=== PATIENT | male | born 1965 | race Caucasian/White ===

== ENCOUNTER 2020-10-10 10:49 | Emergency (ER) | payer BC, SELFPAY ==
--- NOTE | ~2020-10-10 | CT_ITS ---
EXAMINATION: CT abdomen wo con DATE: 10/10/2020 12:48 INDICATION: Left upper quadrant abdominal pain. TECHNIQUE: Computed tomography (CT) of the abdomen was performed without intravenous contrast. Automa dickson exposure control and iterative reconstruction technique were employed. The dose-length product wa s 470.00 mGy-cm. COMPARISON: 10/19/2007 FINDINGS: Mild bibasilar atelectasis, left greater than right. Heart size is normal. No pericardial or pleural effusion. Small amount of atherosclerotic coronary artery calcification. Liver, gallbladder, spleen, pancreas, bilateral adrenal glands and kidneys are normal. Normal appendix. No abnormal bowel wall th ickening or obstruction. There is mild inflammatory stranding surrounding a small ovoid region of fat along the proximal descending colon consistent with epiploic appendagitis. No pathologically enlarge d abdominal lymphadenopathy. Tiny fat-containing umbilical hernia. Minimal thoracolumbar spondylosis. IMPRESSION: 1. Epiploic appendagitis along the proximal descending colon. Reviewed, dictated and finalized at location B.
[2020-10-10 10:57] VITALS: BP 145/94; PULSE 83; RESP 20; TEMP 36.4; O2SAT 100
--- NOTE | 2020-10-10 11:06 | PC.NURSE ---
Pt states that left flank pain is only with movement. Pt states i can lay on the couch and have no pain. Pt states when I move is when it hurts.
--- NOTE | 2020-10-10 11:35 | ECG_ITS ---
Measurements Intervals [place] Rate: 75 P: 28 MA: 139 QRS: 7 QRSD: 94 T: 30 QT: 362 QTc: 404 Interpretive Statements SINUS RHYTHM NORMAL ECG Electronically Signed On 10-10-2020 11:57:28 CDT by Phil Ware D.O.
[2020-10-10] MEDS: SODIUM CHLORIDE 0.9% IV 1,000 ML 999 ML IV CONT (12:29)
[2020-10-10 12:39] LABS: Basophils Absolute Auto 0.1 K/mm3 (0.0-0.1); Eosinophils Absolute Auto 0.1 K/mm3 (0-0.3); Eosinophils Percent Auto 1.7 % (0-4.4); Hematocrit 43.3 % (42.0-52.0); Hemoglobin 14.3 g/dL (14.0-18.0); Immature Granulocyte Absolute 0.02 K/mm3 (0.00-0.031); Immature Granulocyte Percent A 0.4 % (0-0.5); Lymphocytes Absolute Auto 1.82 K/mm3 (0.9-3.2); Lymphocytes Percent Auto 34.7 % (18.3-44.2); Mean Corpuscular Hemoglobin 29.6 pg (26-34); Mean Corpuscular Volume 89.6 fl (80-100); Mean Platelet Volume 9.2 fl (7.4-10.4); Monocytes Absolute Auto 0.4 K/mm3 (0.1-0.6); Monocytes Percent Auto 8.2 % (2.6-8.5); Neutrophils Absolute Auto 2.8 K/mm3 (1.3-6.7); Platelet Count Result 223 k/mm3 (150-375); Red Blood Count 4.83 M/mm3 (4.6-6.20); Red Cell Distribution Width 12.9 % (11.5-14.5); White Blood Count 5.2 K/mm3 (4.5-10.0)
--- NOTE | 2020-10-10 12:39 | ED.ABDPAIN ---
HPI - Abdominal Pain General Chief Complaint: Back Pain/Injury Stated Complaint: abd pain Time Seen by Provider: 10/10/20 11:17 Source: patient Mode of arrival: ambulatory Limitations: no limitations History of Present Illness HPI narrative: Patient is a 55-year-old male who presents complaining of left upper quadrant and back pain x2 weeks. He reports increased pain over the past week, intermittent nausea. Denies vomiting, diarrhea or constipation. Denies injury. He reports no significant medical history. Reports increased pain with movement and reports positional at times. He denies taking [id number] medications prior to arrival. Patient reports attempting appointment with PCP but PCP unavailable until next week. MD elicited complaint: abdominal pain Pertinent past history: none Related Data Allergies Allergy/AdvReac Type Severity Reaction Status Date / Time Iodinated Contrast Media Allergy Intermediate Verified 05/15/20 12:54 Iodine and Iodide Containing Allergy Unknown Verified 05/15/20 12:54 Produc Contrast Media Allergy Intermediate Rash Uncoded 05/15/20 12:54 Review of Systems Review of Systems: Narrative: CONSTITUTIONAL: Denies fever, chills, or sweats. EYES: Denies visual changes, redness, or discharge. ENT: Denies rhinorrhea, congestion, sore throat, or otalgia. CARDIOVASCULAR: Denies chest pain, palpitations, or edema. RESPIRATORY: Denies cough or dyspnea. GASTROINTESTINAL: Reports abdominal pain with intermittent nausea, denies vomiting, constipation or diarrhea. GENITOURINARY: Denies dysuria or hematuria. SKIN: Denies rash or itching. MUSCULOSKELETAL: Denies back pain, joint pain, or myalgia. NEUROLOGIC: Denies headache, numbness, dizziness, or weakness. PSYCHIATRIC: Denies anxiety or depression. FOR[facility]LY [facility], [facility] Family History Family History (Updated 10/10/20 @ 12:44 by KENRICK Murray) Other No significant family history Social History Social History (Updated 10/10/20 @ 12:45 by KENRICK Murray) Smoking status: Former smoker Second hand tobacco smoke exposure: No Alcohol intake: current Substance use: never Living arrangements: with family Occupation/Education: occupation Gender identity (if verbalized by the patient): Male Comments At the time of signature, I have reviewed and agree with nursing past medical, surgical, social, and family history unless otherwise noted. Please see nursing chart for further information. There is no relevant family history pertinent to the presenting complaint. Exam Narrative: Exam Narrative: GENERAL: Well-appearing, well-nourished, and in no acute distress. HEAD: Normocephalic, atraumatic. EYES: EOMI. No redness or drainage. Conjunctiva are normal. ENT: Mucous membranes pink and moist. NECK: AROM. Supple. No lymphadenopathy. CHEST: No respiratory distress. Clear to auscultation. HEART: Regular rate and rhythm. No murmur appreciated. Normal peripheral pulses. GI: Soft, nontender without rebound, or guarding. No distention. Bowel sounds normal in all quadrants. MUSCULOSKELETAL: No bony tenderness. EXTREMITIES: Normal range of motion. No edema. SKIN: Warm, dry, no rash. NEURO: No focal deficits. Alert and oriented x3. Gait steady. PSYCH: Normal affect. No signs of depression or anxiety. Course Vital Signs Vital signs: Vital Signs Temperature 36.4 C 10/10/20 10:57 Pulse Rate 83 10/10/20 10:57 Respiratory Rate 20 10/10/20 10:57 Blood Pressure 145/94 H 10/10/20 10:57 Pulse Oximetry 100 10/10/20 10:57 Temperature 36.4 C 10/10/20 10:57 Pulse Rate 83 10/10/20 10:57 Respiratory Rate 20 10/10/20 10:57 Blood Pressure 145/94 H 10/10/20 10:57 Pulse Oximetry 100 10/10/20 10:57 Reviewed. Patient has been instructed to follow-up with his PCP regarding his blood pressure. MDM - Abdominal Pain MDM Narrative Medical decision making narrative: Patient's labs are unremarkable. Patient's CT shows epiplo
[2020-10-10 12:41] LABS: Add Urine Microscopic? NO; Appearance Urine Clear (Clear); Bilirubin Urine Negative (Negative); Blood Urine Negative (Negative); Color Urine Yellow (Yellow); Glucose Urine UA Negative (Negative); Ketones Urine Negative (Negative); Leukocyte Esterase Ur Negative LEU/UL (Negative); Nitrate Urine Negative (Negative); Protein Urine Negative (Negative); Specific Grav Ur 1.014 (1.001-1.035); Urobilinogen Urine Negative mg/dL (<2.0)
[2020-10-10 12:58] LABS: Alanine Aminotransferase 20 U/L (4-50); Albumin Level 4.4 g/dL (3.5-5.1); Alkaline Phosphatase 57 U/L (38-126); Anion Gap 5 mmol/L (8-16); Aspartate Amino Transferase 25 U/L (17-59); Bilirubin Indirect 0.5 mg/dL (0-1.1); Bilirubin,Total 0.5 mg/dL (0.2-1.3); Blood Urea Nitrogen 14 mg/dL (9-20); Calcium 9.6 mg/dL (8.4-10.2); Carbon Dioxide 32 mmol/L (22-30); Chloride 103 mmol/L (98-107); Estimated CRCL calculation 68 ml/min; Estimated Glomerular Filt Rate > 60; Glucose 99 mg/dL (75-110); Lipase 139 U/L (23-300); Potassium 4.4 mmol/L (3.4-5.0); Sodium 140 mmol/L (137-145)
[2020-10-10 13:10] LABS: Troponin I < 0.012 ng/mL (0.000-0.034)
== END 2020-10-10 13:33 | disposition home or self-care (01) ==
PROVIDERS: Emergency Provider Nurse Practitioner; PCP Physician Assistant
DX: K63.89 Other specified diseases of intestine (principal); Z87.891 Personal history of nicotine dependence; R03.0 Elevated blood-pressure reading, without diagnosis of hypertension
CPT/HCPCS: 36415; 74150; 80053; 81003; 82248; 83690; 84484; 85025; 93005; 96360; 99284; J7030

== ENCOUNTER 2021-03-25 07:05 | Outpatient (CLI) | payer BC, SELFPAY ==
[2021-03-25 07:42] LABS: Hematocrit 39.6 % (42.0-52.0); Hemoglobin 13.2 g/dL (14.0-18.0); Mean Corpuscular HGB Conc 33.3 g/dl (32-36); Mean Corpuscular Hemoglobin 29.5 pg (26-34); Mean Corpuscular Volume 88.4 fl (80-100); Mean Platelet Volume 8.9 fl (7.4-10.4); Platelet Count Result 222 k/mm3 (150-375); Red Blood Count 4.48 M/mm3 (4.6-6.20); Red Cell Distribution Width 12.8 % (11.5-14.5); White Blood Count 4.9 K/mm3 (4.5-10.0)
[2021-03-25 12:28] LABS: LDL Cholesterol Direct 124 mg/dL
[2021-03-25 12:45] LABS: Alanine Aminotransferase 20 U/L (4-50); Albumin Level 4.4 g/dL (3.5-5.1); Alkaline Phosphatase 52 U/L (38-126); Anion Gap 8 mmol/L (8-16); Aspartate Amino Transferase 28 U/L (17-59); Bilirubin,Total 0.5 mg/dL (0.2-1.3); Blood Urea Nitrogen 16 mg/dL (9-20); Calcium 9.7 mg/dL (8.4-10.2); Carbon Dioxide 28 mmol/L (22-30); Chloride 104 mmol/L (98-107); Cholesterol 203 mg/dL (0-200); Estimated Glomerular Filt Rate > 60; Glucose 101 mg/dL (65-110); HDL Direct 31 mg/dL; Lipase 180 U/L (23-300); Potassium 4.2 mmol/L (3.4-5.0); Sodium 140 mmol/L (137-145); Triglycerides 72 mg/dL (<150)
[2021-03-25 12:47] LABS: Prostate Specific Antigen 0.5 ng/mL (< OR = 4.0)
[2021-03-25 13:35] LABS: Folic Acid 11.5 ng/mL (2.76->20)
== END 2021-03-25 07:06 | disposition home or self-care (01) ==
PROVIDERS: PCP Physician Assistant; Visit Provider Physician Assistant
DX: Z12.5 Encounter for screening for malignant neoplasm of prostate (principal); R10.9 Unspecified abdominal pain; Z00.00 Encounter for general adult medical examination without abnormal findings
CPT/HCPCS: 36415; 80053; 80061; 82607; 82746; 83690; 84153; 84443; 85027; G0103

== ENCOUNTER 2021-03-31 15:53 | Outpatient (CLI) | payer BC, SELFPAY ==
[2021-03-31 20:28] LABS: Iron 65 ug/dL (49-181)
[2021-03-31 20:38] LABS: Percent Iron Saturation 23 % (20-50)
== END 2021-03-31 15:54 | disposition home or self-care (01) ==
PROVIDERS: PCP Physician Assistant; Visit Provider Physician Assistant
DX: D64.9 Anemia, unspecified (principal)
CPT/HCPCS: 36415; 82728; 83540; 83550

== ENCOUNTER 2021-04-21 13:58 | Outpatient (CLI) | payer BC, SELFPAY ==
--- NOTE | ~2021-04-21 | US_ITS ---
EXAMINATION: US carotid duplex BI DATE: 04/21/2021 16:21 INDICATION: Dizziness. Giddiness. TECHNIQUE: Grayscale, color Doppler, and pulsed Doppler images of the cervical carotid arteries were obtained. The degree of vessel stenosis is placed in one of the following categories: normal, <50%, 5 0-69%, >=70% but less than near-occlusion, near-occlusion, or total occlusion. Note that percent sten osis relative to normal distal artery lumen diameter is indirectly measured from velocity measurement s as described by Win, et al. Radiology 2003; 229:340-346. COMPARISON: None. FINDINGS: RIGHT: The right common carotid artery (CCA) peak systolic velocity (PSV) is 92.5 cm/s. The right internal c arotid artery (ICA) PSV is 62.7 cm/s. The right ICA end-diastolic velocity (EDV) is 20.9 cm/s. The ri t ICA/CCA PSV ratio is 0.7. Grayscale and color Doppler images yield an estimate of less than 50% d iameter reduction from plaque in the ICA. The external carotid artery (ECA) PSV is 59.7 cm/s. There i s antegrade flow in the right vertebral artery. LEFT: The left CCA PSV is 84.5 cm/s. The left ICA PSV is 85.6 cm/s. The left ICA EDV is 24.1 cm/s. The left ICA/CCA PSV ratio is 1.0. Grayscale and color Doppler images yield an estimate of less than 50% diam eter reduction from plaque in the ICA. The ECA PSV is 66.9 cm/s. There is antegrade flow in the left vertebral artery. IMPRESSION: 1. Less than 50% stenosis in the right internal carotid artery. 2. Less than 50% stenosis in the left internal carotid artery. Reviewed, dictated and finalized at Location [facility]. Reviewed, dictated and finalized at location B.
--- NOTE | 2021-04-21 14:11 | ECHO_ITS ---
Patient Info Name: Jcarlos Page Age: 55 years : 1965 Gender: Male Ht: 67 in Wt: 220 lbs BSA: 2.21 m2 HR: 73 bpm BP: 140 / 86 mmHg Exam Date: 04/21/2021 2:15 PM Exam Location: [facility] Patient Status: Outpatient Admit Date: 04/21/2021 Staff Ordering Physician: Raphael Mclaughlin PA-C Investment Specialist: Gwendolyn Fuchs RDCS Attending Provider: Raphael Mclaughlin PA-C Referring Physician: Lissette ECKERT; Exam Type: CA echo doppler color flow Study Info Indications R55 - Syncope and collapse Complete two-dimensional, color flow and Doppler transthoracic echocardiogram is performed. Strain analysis performed. Summary 1. Complete two-dimensional, color flow and Doppler transthoracic echocardiogram is performed. 2. Left ventricular chamber dimension is mildly enlarged. 3. Left ventricular systolic function is normal, estimated at 55-60%. 4. The left ventricular diastolic function is grade II diastolic dysfunction. 5. E/e' 11 is mildly elevated. 6. Global longitudinal strain is abnormal at -14.5%. 7. No pulmonary hypertension, estimated pulmonary arterial systolic pressure is 22 mmHg. Left Ventricle E/e' 11 is mildly elevated. Global longitudinal strain is abnormal at -14.5%. Left ventricular chamber dimension is mildly enlarged. Left ventricular systolic function is normal, estimated at 55-60%. The left ventricular diastolic function is grade II diastolic dysfunction. Right Ventricle Right ventricular chamber dimension is normal. Right ventricular systolic function is normal. Left Atria Left atrial chamber dimension is normal. Right Atria Right atrial chamber dimension is normal. Aortic Valve The aortic valve is trileaflet. There is no aortic valve stenosis. There is no aortic valve regurgitation. Pulmonic Valve There is no pulmonic regurgitation. Mitral Valve There is no mitral valve stenosis. There is no mitral valve regurgitation. Tricuspid Valve There is no tricuspid valve regurgitation. No pulmonary hypertension, estimated pulmonary arterial systolic pressure is 22 mmHg. Pericardium/Pleural There is no pericardial effusion. Inferior Vena Cava Normal inferior vena cava with >50% collapse upon inspiration consistent with normal right atrial pressure, 5 mmHg. Aorta The aortic root size at the sinus of Valsalva is normal. Left Ventricular Outflow Tract Name Value Normal LVOT 2D LVOT Diameter 2.0 cm LVOT Doppler LVOT Peak Gradient 3 mmHg LVOT Mean Gradient 2 mmHg LVOT VTI 17 cm LVOT VTI/AV VTI Ratio 0.9 LVOT Stroke Volume 54 ml LVOT CO 4.0 l/min LVOT CI 1.8 l/min/m2 Pulmonic Valve Name Value Normal RVOT Doppler
== END 2021-04-21 13:59 | disposition home or self-care (01) ==
PROVIDERS: PCP Physician Assistant; Visit Provider Physician Assistant
DX: R55 Syncope and collapse (principal); R42 Dizziness and giddiness; R51.9 Headache, unspecified
CPT/HCPCS: 93306; 93880

== ENCOUNTER 2021-05-08 14:58 | Outpatient (CLI) | payer BC, SELFPAY ==
[2021-05-14 10:40] LABS: Testosterone Free 35.3 pg/mL (35.0-155.0); Testosterone Total 195 ng/dL (250-1100)
== END 2021-05-08 14:59 | disposition home or self-care (01) ==
PROVIDERS: PCP Internal Medicine; Visit Provider Physician Assistant
DX: R53.83 Other fatigue (principal)
CPT/HCPCS: 36415; 84402; 84403

== ENCOUNTER 2022-03-18 07:16 | Outpatient (CLI) | payer BC, SELFPAY ==
[2022-03-18 08:59] LABS: Basophils Percent Auto 0.7 % (0.2-1.2); Eosinophils Absolute Auto 0.2 K/mm3 (0-0.3); Eosinophils Percent Auto 3.4 % (0-4.4); Hematocrit 42.1 % (42.0-52.0); Hemoglobin 13.8 g/dL (14.0-18.0); Immature Granulocyte Absolute 0.02 K/mm3 (0.00-0.031); Immature Granulocyte Percent A 0.4 % (0-0.5); Lymphocytes Absolute Auto 2.03 K/mm3 (0.9-3.2); Lymphocytes Percent Auto 37.8 % (18.3-44.2); Mean Corpuscular HGB Conc 32.8 g/dl (32-36); Mean Corpuscular Hemoglobin 30.1 pg (26-34); Mean Corpuscular Volume 91.7 fl (80-100); Mean Platelet Volume 9.4 fl (7.4-10.4); Monocytes Absolute Auto 0.5 K/mm3 (0.1-0.6); Monocytes Percent Auto 8.6 % (2.6-8.5); Neutrophils Absolute Auto 2.6 K/mm3 (1.3-6.7); Neutrophils Percent Auto 49.1 % (45.5-73.1); Platelet Count Result 231 k/mm3 (150-375); Red Blood Count 4.59 M/mm3 (4.6-6.20); Red Cell Distribution Width 12.8 % (11.5-14.5); White Blood Count 5.4 K/mm3 (4.5-10.0)
[2022-03-18 10:07] LABS: Alanine Aminotransferase 20 U/L (6-50); Albumin Level 4.3 g/dL (3.5-5.1); Alkaline Phosphatase 52 U/L (38-126); Anion Gap 10 mmol/L (8-16); Aspartate Amino Transferase 25 U/L (17-59); Bilirubin,Total 0.4 mg/dL (0.2-1.3); Blood Urea Nitrogen 17 mg/dL (9-20); Calcium 9.7 mg/dL (8.4-10.2); Carbon Dioxide 28 mmol/L (22-30); Chloride 100 mmol/L (98-107); Cholesterol 190 mg/dL (0-200); Estimated Glomerular Filt Rate > 60; Glucose 117 mg/dL (65-110); HDL Direct 34 mg/dL; Potassium 4.2 mmol/L (3.4-5.0); Sodium 138 mmol/L (137-145); Triglycerides 167 mg/dL (<150)
[2022-03-18 10:09] LABS: Hemoglobin A1C 5.9 % (<5.7)
[2022-03-18 10:19] LABS: LDL Cholesterol Direct 116 mg/dL
[2022-03-18 10:52] LABS: Prostate Specific Antigen 0.7 ng/mL (< OR = 4.0)
[2022-03-22 16:17] LABS: Testosterone Free 47.5 pg/mL (35.0-155.0); Testosterone Total 267 ng/dL (250-1100)
== END 2022-03-18 07:17 | disposition home or self-care (01) ==
LOC: ANHLAB 07:17
PROVIDERS: PCP Family Medicine; Visit Provider Family Medicine
DX: Z51.81 Encounter for therapeutic drug level monitoring (principal); R73.9 Hyperglycemia, unspecified; Z13.1 Encounter for screening for diabetes mellitus; E78.5 Hyperlipidemia, unspecified; Z79.890 Hormone replacement therapy; D64.9 Anemia, unspecified
CPT/HCPCS: 36415; 80053; 80061; 83036; 84153; 84402; 84403; 84443; 85025

== ENCOUNTER 2022-04-21 00:54 | Day surgery (SDC) | payer BC, SELFPAY ==
[2022-04-02 08:18] VITALS: BMI 34.5
--- NOTE | 2022-04-20 17:47 | P.HP_ITS ---
History of Present Illness History of Present Illness Consent: Risks, benefits, and alternatives have been discussed and questions answered. Patient agrees to proceed with procedure. Chief complaint: JEFE Narrative: Jcarlos Page is a 56 year old male For for colon cancer screening. He does not see blood in his stools. His last colonoscopy was about 13 years ago Review of Systems Review of Systems: All systems reviewed & are unremarkable except as noted in HPI and below PMFSH Family History Family History Sibling Alcoholism Heart disease Grandparent Diabetes mellitus Other No significant family history Social History Social History Smoking packs per day: 1 Smoking cigarettes per day: 20.0 Years smoked: 10 Smoking pack-years: 10.00 Smoking status: Former smoker Tobacco type: cigarettes Second hand tobacco smoke exposure: No Alcohol intake: current Drinks per week: 10 Substance use: never Substance use type: does not use, former substance user, marijuana, crack/cocaine, heroin, amphetamines, hallucinogens, tranquilizers, sedatives, opiates, painkillers, club/house designer drugs, inhalants, IV drugs, methamphetamine, prescription drug, unknown and other Living arrangements: with family 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[employer] Gender identity (if verbalized by the patient): Male Spiritual care concerns: No Agree to blood products: Yes Meds Home Medications and Allergies Home Medications Medication Instructions Recorded Confirmed Type celecoxib 100 mg capsule (Celebrex) 100 mg PO BID #60 caps 03/22/22 04/02/22 Rx duloxetine 30 mg capsule,delayed 30 mg PO DAILY #30 caps 03/22/22 04/02/22 Rx release (Cymbalta) sildenafil 50 mg tablet (Viagra) 100 mg PO DAILY PRN sexual 03/23/22 04/02/22 Rx activity #30 tabs Allergies Allergy/AdvReac Type Severity Reaction Status Date / Time Iodinated Contrast Media Allergy Intermediate unknown Verified 04/21/22 09:48 Iodine and Iodide Containing Allergy Unknown unknown Verified 04/21/22 09:48 Produc Contrast Media Allergy Intermediate Rash Uncoded 04/21/22 09:48 Exam Const: General: alert Orientation/consciousness: patient oriented x3 Resp: Auscultation: clear to auscultation bilaterally Cardio: Rhythm: regular rhythm GI: GI Palp: Yes Soft to palpation and No Tenderness to palpation present (GI) Neuro: General: patient oriented x3 Assessment and Plan Assessment and plan (1) Colon cancer screening: Code(s): Z12.11 - Encounter for screening for malignant neoplasm of colon Status: Acute Assessment and Plan: Colonoscopy with possible biopsy or polypectomy or cautery or injection of substances.
[2022-04-21 09:51] VITALS: BP 138/83; PULSE 73; RESP 18; TEMP 36.4; O2SAT 100
[2022-04-21] MEDS: LACTATED RINGERS 1,000 ML 150 ML IV CONT (10:01)
--- NOTE | 2022-04-21 11:12 | WPDANESEPPF ---
Anes - Initial Pre Proc Eval Procedure: Operation Date: 04/21/22 11:00 Proposed Procedures p Esophagogastroduodenoscopy & Colonoscopy - Sandro Hancock MD Date/Time: 04/21/22 11:12 Surgeon: Sandro Hancock MD Pre Op Diagnosis: JEFE Patient Data Age: 56 Gender: M Height: 1.7 m Weight: 100.3 kg Last Vital Signs Temp 97.5 F L 04/21/22 09:51 Pulse 73 04/21/22 09:51 Resp 18 04/21/22 09:51 BP 138/83 04/21/22 09:51 Pulse Ox 100 04/21/22 09:51 O2 Del Method Room Air 04/21/22 09:51 Allergies Allergy/AdvReac Type Severity Reaction Status Date / Time Iodinated Contrast Media Allergy Intermediate unknown Verified 04/21/22 09:48 Iodine and Iodide Containing Allergy Unknown unknown Verified 04/21/22 09:48 Produc Contrast Media Allergy Intermediate Rash Uncoded 04/21/22 09:48 Home Medications Medication Instructions Recorded Confirmed Type celecoxib 100 mg capsule (Celebrex) 100 mg PO BID #60 caps 03/22/22 04/02/22 Rx duloxetine 30 mg capsule,delayed 30 mg PO DAILY #30 caps 03/22/22 04/02/22 Rx release (Cymbalta) sildenafil 50 mg tablet (Viagra) 100 mg PO DAILY PRN sexual 03/23/22 04/02/22 Rx activity #30 tabs Patient hx anesthesia problems: none Family hx anesthesia problems: none Results Review: All pre-operative results and documents have been reviewed as part of the pre-operative evaluation. [facility] Family History Family History Sibling Alcoholism Heart disease Grandparent Diabetes mellitus Other No significant family history Social History Social History Smoking packs per day: 1 Smoking cigarettes per day: 20.0 Years smoked: 10 Smoking pack-years: 10.00 Smoking status: Former smoker Tobacco type: cigarettes Second hand tobacco smoke exposure: No Alcohol intake: current Drinks per week: 10 Substance use: never Substance use type: does not use, former substance user, marijuana, crack/cocaine, heroin, amphetamines, hallucinogens, tranquilizers, sedatives, opiates, painkillers, club/civil engineering project designer drugs, inhalants, IV drugs, methamphetamine, prescription drug, unknown and other Living arrangements: with family 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 Informed Consent: The patient's anesthetic plan and its attendant risks and benefits were discussed with the patient/family/POA. Questions were solicited and answers provided to the satisfaction of the patient/family/POA.
[2022-04-21 11:55] VITALS: BP 120/79; PULSE 69; RESP 28; O2SAT 98
[2022-04-21 12:05] VITALS: BP 118/84; PULSE 66; RESP 21; O2SAT 99
== END 2022-04-21 12:23 | disposition home or self-care (01) ==
PROVIDERS: PCP Family Medicine; Visit Provider Internal Medicine Gastroenterology
PROC: 0DJ08ZZ Inspection of Upper Intestinal Tract, Via Natural or Artificial Opening Endoscopic (ICD-10-PCS; CPT 43235; principal; 2022-04-21 11:00)
DX: Z12.11 Encounter for screening for malignant neoplasm of colon (principal); K57.30 Diverticulosis of large intestine without perforation or abscess without bleeding; K64.8 Other hemorrhoids; Z87.891 Personal history of nicotine dependence; E66.9 Obesity, unspecified; Z68.34 Body mass index [BMI] 34.0-34.9, adult
CPT/HCPCS: 45378; J2704; J7120

== ENCOUNTER 2022-05-28 14:30 | Outpatient (CLI) | payer BC, SELFPAY | END 2022-05-28 14:31 | disposition home or self-care (01) | PROVIDERS: PCP Family Medicine; Visit Provider Surgery | DX: K40.90 Unilateral inguinal hernia, without obstruction or gangrene, not specified as recurrent (principal); Z01.818 Encounter for other preprocedural examination | CPT/HCPCS: 36415; 86850; 86900; 86901 ==

== ENCOUNTER 2022-06-01 00:43 | Day surgery (SDC) | payer BC, SELFPAY ==
[2022-05-26 11:13] VITALS: BMI 36.3
--- NOTE | 2022-05-26 11:17 | PC.NURSE ---
Report to the Outpatient Waiting Room, entrance under the green pavilion located off [facility], at time 9:00 on date 06/01/22. Planned Procedure Time: 11:00. Time changes happen often and if your time is changed the preop area will call you the afternoon before. - You and your visitor will be asked to self-screen and do not enter if you have any COVID symptoms. - We encourage only one visitor and NO visitors under age 16 are allowed at this time. Your visitor will receive communication by the phone number that is given day of service. - The patient visitor is requested to social distance or may leave the building when not with patient due to restrictions. - A mask is OPTIONAL within the hospital. Patients may have clear liquids (water, carbonated beverages, clear teas, apple juice) until 3 hours prior to surgery (8:00) with a maximum of 20 ounces. - No food from midnight until time of surgery Take the following medications with a SIP of water the morning of surgery: NONE Medications to discontinue per physician: CELEBREX Date to take last dose: PER DR. PERRY Please no make-up, nail lao, hairspray, perfume, deodorant, or body powder the day of surgery. No jewelry (including any body piercings) or valuables the day of surgery, leave them at home. Please take a shower or bath the night before, or the morning of, surgery with an antibacterial soap (HIBICLENS). Wear comfortable, loose fitting clothing. - Jewelry must be removed prior to entering the operating room. Rings and piercings that are not removed may be cut off. - The hospital will not accept responsibility for valuables. - Please leave all valuables, including medications, at home the day of surgery. If you are going home after surgery, a licensed haul truck driver must drive you home. - NO public transportation without another adult. - We recommend that an adult stay with you for 24 hours following discharge. - We also recommend that you do not drive, make important decision, drink alcoholic beverages, or take any drugs that were not prescribed by your health care provider for at least 24 hours after your discharge time. Follow any additional instructions given to you from your surgeon. If you or anyone in your household have experienced Covid symptoms in the past week, please notify your surgeon or the nurse liaison at the phone number below for possible testing. Telephone instructions given to TRU TUCKER and asked if any additional questions and then verbalized understanding. Patient advised to call surgeon office or pre surgery nurse liaison [phone] if any additional questions.
[2022-06-01] VITALS (10 sets, daily range): BP systolic 104–142; BP diastolic 73–89; PULSE 59–79; RESP 14–18; TEMP 36.4–36.5; O2SAT 95–100
[2022-06-01] MEDS: LACTATED RINGERS 1,000 ML 30 ML IV CONT ×3 (09:32→15:16)
[2022-06-01] MEDS: KETOROLAC 15 MG/ML VIAL (*BKC) IV PUSH (09:34)
[2022-06-01] MEDS: ACETAMINOPHEN 500 MG TABLET 1000 MG PO (09:41)
--- NOTE | 2022-06-01 10:56 | PM.IMHP ---
H&P: HPI History of Present Illness Date/Time: 06/01/22 10:56 Chief Complaint: Right inguinal hernia Narrative: This is a 56-year-old man who presents for right inguinal hernia repair. He denies any changes since last seen in the office 2 months ago. Review of Systems Review of Systems: All systems reviewed & are unremarkable except as noted in HPI and below Constitutional: Constitutional: Denies chills, Denies fever(s), Denies headache(s) and Denies weight loss Eyes: Eyes: Denies change in vision ENT: Denies dizziness, Denies headache(s), Denies neck mass and Denies throat swelling Cardiovascular: Cardiovascular: Denies chest pain, Denies lightheadedness and Denies dyspnea Respiratory: Respiratory: Denies cough, Denies dyspnea and Denies wheezing Gastrointestinal: Gastrointestinal: Denies abdominal pain, Denies change in bowel habits, Denies nausea and Denies vomiting Genitourinary: Genitourinary: Denies hematuria and Denies dysuria Musculoskeletal: Musculoskeletal: Reports as per HPI Integumentary/Breasts: Skin/Breast: Reports as per HPI Neurologic: Denies dizziness and Denies headache(s) Allergic/Immunologic: Allergic/Immunologic: Denies throat swelling and Denies wheezing FORMERLY [facility], [facility] Family History Family History Sibling Alcoholism Heart disease Grandparent Diabetes mellitus Other No significant family history Social History Social History Smoking packs per day: 1 Smoking cigarettes per day: 20.0 Years smoked: 6 Smoking pack-years: 6.00 Smoking status: Former smoker Tobacco type: cigarettes Second hand tobacco smoke exposure: No Smoking end date: 07/25/04 Alcohol intake: current Drinks per week: 6 Substance use: former Substance use type: marijuana Living arrangements: with family 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[employer] Gender identity (if verbalized by the patient): Male Spiritual care concerns: No Agree to blood products: Yes Meds Home Medications and Allergies Home Medications Medication Instructions Recorded Confirmed Type celecoxib 100 mg capsule (Celebrex) 100 mg PO BID #60 caps 03/22/22 05/26/22 Rx Allergies Allergy/AdvReac Type Severity Reaction Status Date / Time Iodinated Contrast Media Allergy Intermediate Rash Verified 06/01/22 09:15 Iodine and Iodide Containing Allergy Unknown Rash Verified 06/01/22 09:15 Produc Contrast Media Allergy Intermediate Rash Uncoded 06/01/22 09:15 Vital Signs Vital Signs - 24 hr 06/01/22 09:16 Temperature 36.5 C Pulse Rate 78 Respiratory Rate 18 Blood Pressure 139/89 Pulse Oximetry 99 Oxygen Delivery Room Air Exam Const: General: no acute distress and alert Orientation/consciousness: patient oriented x3 HENMT: Head: normocephalic and atraumatic Ears: hearing grossly normal bilaterally Face/Nose/Sinus: Normal nares present Mouth: Yes Normal oral and palatal mucosa present Eyes: Periorbital: periorbital findings normal Sclera: sclerae normal EOM: EOMs intact bilaterally Neck: Neck: normal visual inspection, no lymphadenopathy and trachea midline Chest: Chest palpation & inspection: normal inspection of the chest Resp: Effort & Inspection: normal respiratory effort Auscultation: clear to auscultation bilaterally Cardio: Jugular venous distension: no JVD Rate: regular rate Rhythm: regular rhythm Heart sounds: S1 normal heart sound present and S2 normal heart sound present Peripheral pulses: Peripheral pulses 2+ throughout GI: Inspection: normal to inspection GI Palp: Yes Soft to palpation, No Tenderness to palpation present (GI), No Guarding due to palpation present (GI) and No Rebound tenderness present Percussion: Yes normal to percussion Auscultation: normal bowel sounds : General: Yes no CVA tenderness Other: Small reducible right i
--- NOTE | 2022-06-01 10:57 | WPDHPUPDATE1 ---
History and Physical Update Update Date/Time: 06/01/22 10:57 History and Physical has been reviewed, including an updated exam of the patient. There are NO changes in the patient's condition. Risks, benefits, and alternatives have been discussed and questions answered. Patient agrees to proceed with procedure.
--- NOTE | 2022-06-01 11:24 | P.PNAN_ITS ---
Anes - Initial Pre Proc Eval Procedure: Operation Date: 06/01/22 11:00 Proposed Procedures p Laparoscopic Right Inguinal Hernia Repair with Mesh, Davinci Assisted - Alan Yi DO Date/Time: 06/01/22 11:24 Surgeon: Alan iY DO Pre Op Diagnosis: Right Ing Hernia Patient Data Age: 56 Gender: M Height: 1.68 m Weight: 101.8 kg Last Vital Signs Temp 97.7 F 06/01/22 09:16 Pulse 78 06/01/22 09:16 Resp 18 06/01/22 09:16 BP 139/89 06/01/22 09:16 Pulse Ox 99 06/01/22 09:16 O2 Del Method Room Air 06/01/22 09:16 Allergies Allergy/AdvReac Type Severity Reaction Status Date / Time Iodinated Contrast Media Allergy Intermediate Rash Verified 06/01/22 09:15 Iodine and Iodide Containing Allergy Unknown Rash Verified 06/01/22 09:15 Produc Contrast Media Allergy Intermediate Rash Uncoded 06/01/22 09:15 Home Medications Medication Instructions Recorded Confirmed Type celecoxib 100 mg capsule (Celebrex) 100 mg PO BID #60 caps 03/22/22 05/26/22 Rx Patient hx anesthesia problems: none Family hx anesthesia problems: none Results Review: All pre-operative results and documents have been reviewed as part of the pre- operative evaluation. [facility] Past Medical History Medical History (Updated 06/01/22 @ 11:22 by Leoncio Jaramillo MD) Anxiety Arthritis Depression Family History Family History Sibling Alcoholism Heart disease Grandparent Diabetes mellitus Other No significant family history Social History Social History Smoking packs per day: 1 Smoking cigarettes per day: 20.0 Years smoked: 6 Smoking pack-years: 6.00 Smoking status: Former smoker Tobacco type: cigarettes Second hand tobacco smoke exposure: No Smoking end date: 07/25/04 Alcohol intake: current Drinks per week: 6 Substance use: former Substance use type: marijuana Living arrangements: with family 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[employer] Gender identity (if verbalized by the patient): Male Spiritual care concerns: No Agree to blood products: Yes Anes - Eval Final PreProcedure Day of Procedure 06/01/22 11:24 Patient weight: obese Heart: regular rate and rhythm Lungs: clear to auscultation Airway: Mallampati scale class II Neurological: alert and oriented Last oral intake: >/= 8 hours ASA classification: II Emergent: no Anesthetic plan: proceed Anesthesia type and monitoring: general ETT and standard monitoring Results Review: All pre-operative results and documents have been reviewed as part of the pre- operative evaluation. Informed Consent: The patient's anesthetic plan and its attendant risks and benefits were discussed with the patient/family/POA. Questions were solicited and answers provided to the satisfaction of the patient/family/POA.
[2022-06-01] MEDS: ceFAZolin 2 GM/D5W 50 ML 2 GM/50 ML BAG IVPB (11:36)
[2022-06-01] MEDS: BUPIVACAINE/EPINEPHRINE 0.25% 50 ML VIAL 30 ML INFILTRATE (12:06)
--- NOTE | 2022-06-01 13:04 | W.PM.PROC2 ---
Procedure Note - Detailed Date of Procedure 06/01/22 Pre-op Diagnosis Right Ing Hernia Post-op Diagnosis Other (Direct right inguinal hernia, indirect left inguinal hernia) Procedure Performed Laparoscopic bilateral inguinal hernia repair with mesh, da Perfecto assisted Surgeon Alan Yi, Anesthesia General and Local (0.5% bupivacaine with epinephrine) Indications This is a 56-year-old man who presented with a recently identified right inguinal hernia. He was undergoing a physical and a right inguinal hernia was identified. He does notice some occasional right groin pain with heavy lifting but does not notice a bulge. A reducible right inguinal hernia was identified on physical exam. Discussions were made with the patient about treatment options and decision was made to proceed with robotic assisted laparoscopic right inguinal hernia repair with mesh. Findings Upon inspecting the abdomen laparoscopically, patient was found to have a direct right inguinal hernia and he was also found to have an indirect left inguinal hernia. Decision was made to repair both hernias. A robotic transabdominal preperitoneal approach was utilized. Once a wide enough preperitoneal pocket was created on each side, I then placed a Bard 3DMax mid mesh overlying the entire myopectineal orifice on each side. No specimens were obtained for pathology. Description of Procedure Procedure as well as risks, benefits, and alternatives were discussed with the patient. Written consent was obtained and placed in chart prior to procedure. Patient was brought back to surgical suite. He was placed supine on operating table. Time-out was done to confirm patient and procedure. He was then intubated by Anesthesia Department. His abdomen was prepped and draped in sterile fashion using chlorhexidine prep. 0.5% bupivacaine with epinephrine was infiltrated at each location for incision. An 8 mm incision was made in the left lateral abdomen, and a 5 mm Optiview trocar was advanced through the abdominal layers under direct visualization. Once inside the abdominal cavity, carbon dioxide insufflation was used to create a pneumoperitoneum. A camera was inserted and the abdominal cavity was inspected. The patient was placed in slight Trendelenburg position. An 8 millimeter incision was made on the right lateral abdomen and an 8 millimeter trocar was inserted under direct visualization. Another 8 millimeter incision was made just superior to the umbilicus and an 8 millimeter trocar was inserted under direct visualization. The 5 mm port was then removed and this was replaced with another 8 mm robotic port. The robotic arms were brought up to the patient's bedside and secured to the ports. The camera and instruments were inserted. I then moved over to the robotic console and took control of the camera and instruments. After careful inspection of the abdominal cavity, I began scoring the peritoneum along the right lower quadrant using scissors with electrocautery. The preperitoneal plane was entered and this was carefully dissected caudally along the inferior epigastric vessels. Careful dissection with scissors with electrocautery and blunt dissection was used to continue this dissection. I dissected far enough laterally to allow for mesh placement, and also dissected medially to identify the pubic arch and Iglesia's ligament. The hernia sac was identified and carefully dissected posteriorly. The cord contents were also identified and the peritoneum was carefully dissected far enough posteriorly to allow for mesh placement. Once an adequate pocket was created, I then placed the mesh within the preperitoneal pocket and carefully unfolded it. The mesh was centered on the hernia defect with adequate overlap circumferentially. The inferior edge of the mesh was inspected to ensure that it was far enough away from the peritoneal edge. The mesh appeared in proper position overlying the entire myopect
[2022-06-01] MEDS: oxyCODONE HCL (*CRX) 5 MG TAB IR PO (14:29)
--- NOTE | 2022-06-01 16:03 | SUR.PHASEII ---
1600 notified spouse that i forgot to give them discharge instructions, she is fine with it, but did give them dr cotton's information for any issues or concerns
== END 2022-06-01 15:55 | disposition home or self-care (01) ==
PROVIDERS: Visit Provider Surgery
PROC: 8E0Y4CZ Robotic Assisted Procedure of Lower Extremity, Percutaneous Endoscopic Approach (ICD-10-PCS; CPT 49650; principal; 2022-06-01 11:00)
DX: K40.20 Bilateral inguinal hernia, without obstruction or gangrene, not specified as recurrent (principal); Z87.891 Personal history of nicotine dependence; E66.9 Obesity, unspecified; Z68.36 Body mass index [BMI] 36.0-36.9, adult
CPT/HCPCS: 49650; S2900; A9270; C1781; J0690; J1100; J1885; J2250; J2405; J2704; J3010; J7120

== ENCOUNTER → 2023-05-02 10:55 | Outpatient (CLI) | payer OTHER, SELFPAY ==
--- NOTE | ~2023-05-02 | CT_ITS ---
EXAMINATION: CT pelvis wo con DATE: 05/02/2023 11:18 INDICATION: Bilateral groin pain. TECHNIQUE: Computed tomography (CT) of the pelvis was performed without intravenous contrast. Automat ed exposure control and iterative reconstruction technique were employed.The dose-length product was 631.46 mGy-cm. COMPARISON: None FINDINGS: Moderate diverticulosis along the descending and sigmoid colon without adjacent from trace stranding to suggest diverticulitis. Visualized portion of the small bowel and appendix are normal. Tiny fat-co ntaining umbilical hernia. Small fat-containing left inguinal hernia. No right-sided inguinal hernia. Bladder and prostate are normal. No free intraperitoneal gas or fluid in the pelvis or visualized lo wer abdomen. No pathologically enlarged pelvic or inguinal lymphadenopathy. Moderate lumbosacral and mild lower lumbar spondylosis. Bilateral decreased femoral head neck offset anterosuperiorly with as sociative mild cystic changes along the femoral head neck junctions which can be seen with femoral ac etabular impingement. Mild bilateral hip and sacroiliac osteoarthritis. IMPRESSION: 1. No acute process in the pelvis or visualized lower abdomen with normal appendix. 2. Small fat-containing left inguinal hernia. 3. Moderate diverticulosis. Reviewed, dictated and finalized at location A. IMPRESSION: 1. No acute process in the pelvis or visualized lower abdomen with normal appen ganesh. 2. Small fat-containing left inguinal hernia. 3. Moderate diverticulosis.
== END ==
PROVIDERS: PCP Surgery; Visit Provider Surgery
DX: K40.90 Unilateral inguinal hernia, without obstruction or gangrene, not specified as recurrent (principal); K57.90 Diverticulosis of intestine, part unspecified, without perforation or abscess without bleeding; Z98.890 Other specified postprocedural states; Z87.19 Personal history of other diseases of the digestive system
CPT/HCPCS: 72192

== ENCOUNTER 2023-08-26 08:16 | Outpatient (CLI) | payer OTHER, SELFPAY ==
--- NOTE | ~2023-08-26 | NM_ITS ---
EXAMINATION: NM stress w perf spect multi DATE: 08/26/2023 10:16 INDICATION: Chest pain TECHNIQUE: Rest images were obtained following intravenous administration of 9.8 mCi Tc99m tetrofosmi n (Tresata). The patient performed an exercise activity. At peak exercise, 31.2 mCi Tc99m tetrofosmin (Memorightview) was administered intravenously, and stress images were obtained. Data was reconstructed in to short axis and horizontal and vertical long axis SPECT images. Gated SPECT images were also obtain ed. COMPARISON: None. FINDINGS: There is normal left ventricular perfusion without definite evidence of reversible or fixed perfusion abnormality to suggest ischemia or infarction. There is normal left ventricular chamber size, wall motion and ejection fraction. Left ventricular ejection fraction measures 53%. IMPRESSION: 1. Normal myocardial perfusion at rest and during stress. 2. Left ventricular ejection fraction measuring 53%. Reviewed, dictated and finalized at location A. LATOR INSPECTOR
--- NOTE | 2023-08-26 08:27 | EST_ITS ---
Patient Info Name: Jcarlos Page Age: 58 years : 1965 Gender: Male Ht: 67 in Wt: 223 lbs BSA: 2.23 m2 HR: 71 bpm BP: 132 / 78 mmHg Heart Rhythm: Sinus Rhythm Exam Date: 08/26/2023 9:21 AM Exam Location: Echo Lab Patient Status: Outpatient Admit Date: 08/26/2023 Staff Ordering Physician: Cecil Madison MD Attending Provider: Cecil Madison MD Exercise Technologist: Ling Ly CT Exercise Physician: Phil Ware DO Exam Type: CA stress test treadmill w NM Study Info Indications R07.89 - Other chest pain A nuclear stress test was performed. Summary 1. 1. Negative Hans exercise stress test for ischemic ST changes by ECG criteria. 2. 2. Good functional capacity, achieving 10 METs of workload. 3. 3. Appropriate HR response to exercise. 4. 4. Appropriate HR recovery at 1 minute post exercise. 5. 5. Nuclear scan to follow and will be reported separately. Please correlate with it. 6. 6. Patient informed of the above results. Protocol: Hans Stress ECG Details Stage: REST Duration (min): 0 min : 54 sec Speed (mph): 0.0 Grade (%): 0 HR (bpm): 75 SBP (mmHg): 132 DBP (mmHg): 78 METS: --- Stage: REST Duration (min): 11 min : 5 sec Speed (mph): 0.0 Grade (%): 0 HR (bpm): 81 SBP (mmHg): 132 DBP (mmHg): 78 METS: --- Stage: STAGE 1 Duration (min): 1 min : 0 sec Speed (mph): 1.7 Grade (%): 10 HR (bpm): 104 SBP (mmHg): 132 DBP (mmHg): 78 METS: --- Stage: STAGE 1 Duration (min): 2 min : 0 sec Speed (mph): 1.7 Grade (%): 10 HR (bpm): 111 SBP (mmHg): 132 DBP (mmHg): 78 METS: --- Stage: STAGE 1 Duration (min): 3 min : 0 sec Speed (mph): 1.7 Grade (%): 10 HR (bpm): 111 SBP (mmHg): 135 DBP (mmHg): 82 METS: --- Stage: STAGE 2 Duration (min): 1 min : 0 sec Speed (mph): 2.5 Grade (%): 12 HR (bpm): 120 SBP (mmHg): 135 DBP (mmHg): 82 METS: --- Stage: STAGE 2 Duration (min): 2 min : 0 sec Speed (mph): 2.5 Grade (%): 12 HR (bpm): 125 SBP (mmHg): 172 DBP (mmHg): 79 METS: --- Stage: STAGE 2 Duration (min): 3 min : 0 sec Speed (mph): 2.5 Grade (%): 12 HR (bpm): 127 SBP (mmHg): 172 DBP (mmHg): 79 METS: --- Stage: STAGE 3 Duration (min): 1 min : 0 sec Speed (mph): 3.4 Grade (%): 14 HR (bpm): 136 SBP (mmHg): 199 DBP (mmHg): 77 METS: --- Stage: STAGE 3 Duration (min): 2 min : 0 sec Speed (mph): 3.4 Grade (%): 14 HR (bpm): 141 SBP (mmHg): 199 DBP (mmHg): 77 METS: --- Stage: STAGE 3 Duration (min): 2 min : 20 sec Speed (mph): 3.4 Grade (%): 14 HR (bpm): 141 SBP (mmHg): 199 DBP (mmHg): 77 METS: --- Stage: RECOVERY Duration (min): 0 min : 39 sec Speed (mph): 0.0 Grade (%): 0 HR (bpm): 127 SBP (mmHg): 199 DBP (mmHg): 62 METS: --- Stage: RECOVERY Duration (min): 1 min : 39 sec Speed (mph): 0.0 Grade (%): 0 HR (bpm): 100 SBP
== END 2023-08-26 08:17 | disposition home or self-care (01) ==
LOC: ANHCARD 08:23
PROVIDERS: PCP Family Medicine; Visit Provider Family Medicine
DX: R07.9 Chest pain, unspecified (principal); R06.02 Shortness of breath
CPT/HCPCS: 78452; 93017; A9502